=== PATIENT | female | born 1960 | race Caucasian/White ===

== ENCOUNTER 2018-07-01 06:58 | Emergency (ER) | payer MEDICARE, BC ==
[2018-07-01] MEDS ORDERED: DIPH/PERTUSS(ACELL)/TETANUS VAC/PF 0.5 ML SYR (>=10YO) IM ONE (08:24)
[2018-07-01] MEDS ORDERED: OXYCODONE-ACETAMINOPHEN 5-325 MG TABLET PO ONE (08:24)
--- NOTE | 2018-07-01 09:00 | RADIOLOGY REPORT (SQ) ---
EXAM DESCRIPTION: WRIST RIGHT 3 VIEWS COMPLETED DATE/TIME: 07/01/2018 8:52 am REASON FOR STUDY: fall COMPARISON: None. NUMBER OF VIEWS: Three views. TECHNIQUE: AP, lateral, and oblique radiographic images acquired of the right wrist. LIMITATIONS: None. FINDINGS: MINERALIZATION: Normal. BONES: There is an impaction type fracture of the distal radius and associated avulsion type fracture of the ulnar styloid process. SOFT TISSUES: There is associated soft tissue swelling. OTHER: No other significant finding. IMPRESSION: Fracture of the distal ulna and radius as noted above. TECHNICAL DOCUMENTATION: JOB ID: [id number] [employer]- All Rights Reserved Reading location - IP/workstation name: [email or web address]
--- NOTE | 2018-07-01 09:05 | RADIOLOGY REPORT (SQ) ---
EXAM DESCRIPTION: KNEE LEFT 4 VIEW COMPLETED DATE/TIME: 07/01/2018 8:51 am REASON FOR STUDY: fall COMPARISON: None. NUMBER OF VIEWS: Four views. TECHNIQUE: AP, lateral, and both oblique radiographic images acquired of the left knee. LIMITATIONS: None. FINDINGS: MINERALIZATION: Normal. BONES: No acute fracture or dislocation. No worrisome bone lesions. JOINT: No effusion. SOFT TISSUES: No soft tissue swelling. No radio-opaque foreign body. OTHER: No other significant finding. IMPRESSION: 1. NEGATIVE STUDY OF THE LEFT KNEE. 2. If symptoms persist, follow-up examination is suggested for re-evaluation. TECHNICAL DOCUMENTATION: JOB ID: [id number] [employer]- All Rights Reserved Reading location - IP/workstation name: [email or web address]
--- NOTE | 2018-07-01 09:05 | RADIOLOGY REPORT (SQ) ---
EXAM DESCRIPTION: ANKLE BILATERAL 3 VIEWS MIN COMPLETED DATE/TIME: 07/01/2018 8:51 am REASON FOR STUDY: fall COMPARISON: None. NUMBER OF VIEWS: Three views. TECHNIQUE: AP, lateral, and oblique without weight bearing radiographic images acquired of the right and left ankle. LIMITATIONS: None. FINDINGS: MINERALIZATION: Normal. BONES: In the oblique projection there is some cortical irregularity involving the distal end of the fibula which I cannot exclude as a fracture. No other evidence for fracture on the right is seen. No evidence for fracture dislocation on the left is seen. JOINTS: No effusions. SOFT TISSUES: There is soft tissue swelling on the right OTHER: No other significant finding. IMPRESSION: Cortical irregularity at the level of the distal end of the right fibula which I cannot exclude as a fracture. No other evidence for fracture is seen. Clinical correlation is recommended. Other findings as noted above TECHNICAL DOCUMENTATION: JOB ID: [id number] [employer]- All Rights Reserved Reading location - IP/workstation name: [email or web address]
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
[2018-07-01 09:59] VITALS: BP 118/68
== END 2018-07-01 09:55 | disposition home or self-care (01) ==
LOC: ER 06:58
PROC: 2W3CX1Z Immobilization of Right Lower Arm using Splint (ICD-10-PCS; principal; 2018-07-01)
DX: S52.501A Unspecified fracture of the lower end of right radius, initial encounter for closed fracture (principal); S82.831A Other fracture of upper and lower end of right fibula, initial encounter for closed fracture; S93.402A Sprain of unspecified ligament of left ankle, initial encounter; S83.92XA Sprain of unspecified site of left knee, initial encounter; W10.9XXA Fall (on) (from) unspecified stairs and steps, initial encounter
CPT/HCPCS: 99283; 90471; 73564; 73110; 73610; 90715; 29125; L1902; A9270

== ENCOUNTER 2018-07-02 09:41 | Day surgery (SDC) | payer MEDICARE, BC ==
[~2018-07-02 09:41] MED LIST: CEFAZOLIN 2 GM/D5W RTU 2 GM/50 ML RTUPB IV ONE; CEFAZOLIN 2 GM/D5W RTU 2 GM/50 ML RTUPB IV PRN; DEXAMETHASONE SOD PHOSPHATE INJ 4 MG/1 ML VIAL ONE; KETOROLAC TROMETHAMINE 60 MG/2 ML SDV ONE; METOCLOPRAMIDE HCL INJ/PF 10 MG/2 ML SDV ONE; ONDANSETRON HCL INJ/PF 4 MG/2 ML SDV ONE; SUCCINYLCHOLINE CHLORIDE INJ 200 MG/10 ML VIAL ONE
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
[2018-07-02 10:37] LABS: HEMOGLOBIN 16.2 g/dL (12.0-15.5); MEAN CORPUSCULAR HEMOGLOBIN 31.1 pg (27.0-33.4); MEAN CORPUSCULAR HGB CONC 34.5 g/dL (32.0-36.0); MEAN CORPUSCULAR VOLUME 90 fl (80-97); PLATELET COUNT 195 10^3/uL (150-450); RED BLOOD COUNT 5.22 10^6/uL (3.72-5.28); WHITE BLOOD COUNT 6.3 10^3/uL (4.0-10.5)
[2018-07-02] MEDS ORDERED: ALBUTEROL SULFATE 0.083% NEB 2.5 MG/3 ML AMPUL NEB ONE (11:00)
[2018-07-02 11:04] LABS: ANION GAP 7 (5-19); BLOOD UREA NITROGEN 19 mg/dL (7-20); CALCIUM 9.4 mg/dL (8.4-10.2); CARBON DIOXIDE 28 mmol/L (22-30); CHLORIDE 103 mmol/L (98-107); GLUCOSE 94 mg/dL (75-110); POTASSIUM 3.3 mmol/L (3.6-5.0); SODIUM 137.8 mmol/L (137-145)
[2018-07-02] MEDS ORDERED: LIDOCAINE 2% INJ-PF (20 MG/ML) 10 ML AMPUL ONE (13:15)
[2018-07-02] MEDS ORDERED: HYDROMORPHONE HCL INJ/PF 2 MG/ML AMPULE ONE (13:15)
[2018-07-02] MEDS ORDERED: MIDAZOLAM 2 MG/2 ML INJ ONE (13:16)
[2018-07-02] MEDS ORDERED: PROPOFOL INJ 200 MG/20 ML VIAL IV ONE (13:16)
[2018-07-02] MEDS ORDERED: FENTANYL CITRATE INJ/PF 100 MCG/2 ML AMPUL ONE (13:16)
--- NOTE | 2018-07-02 13:48 | EKG REPORT ---
SEVERITY:- BORDERLINE ECG - SINUS RHYTHM PROBABLE LEFT ATRIAL ABNORMALITY : Confirmed by: Monique Levi MD 02-Jul-2018 13:46:29
[2018-07-02] MEDS ORDERED: PROMETHAZINE HCL INJ 25 MG/1 ML VIAL IV PRN ×2 (14:25)
[2018-07-02] MEDS ORDERED: DIPHENHYDRAMINE HCL 50 MG/ML VIAL IV PRN (14:25)
[2018-07-02] MEDS ORDERED: OXYCODONE-ACETAMINOPHEN 5-325 MG TABLET PO PRN ×4 (14:25→15:56)
[2018-07-02] MEDS ORDERED: FENTANYL CITRATE INJ/PF 100 MCG/2 ML AMPUL IV PRN ×3 (14:25)
[2018-07-02] MEDS ORDERED: MEPERIDINE HCL/PF INJ 25 MG/1 ML DISP.SYRIN IV PRN (14:25)
[2018-07-02] MEDS ORDERED: ONDANSETRON HCL INJ/PF 4 MG/2 ML SDV IV PRN (14:25)
[2018-07-02] MEDS ORDERED: BUPIVACAINE HCL 0.5 % INJ/PF 30 ML SDV ONE (14:46)
[2018-07-02] MEDS ORDERED: ACETAMINOPHEN 1,000 MG/100 ML RTUPB IV ONE (15:31)
--- NOTE | 2018-07-02 15:35 | Operative Report ---
Operative Report DATE OF SURGERY: 07/02/18 PREOPERATIVE DIAGNOSIS: Right intra-articular distal radius fracture with ulnar styloid fracture POSTOPERATIVE DIAGNOSIS: Same OPERATION: ORIF of right distal radius fracture SURGEON: RONAK PEREZ ANESTHESIA: GA TISSUE REMOVED OR ALTERED: None COMPLICATIONS: None ESTIMATED BLOOD LOSS: Less than 20 mL INTRAOPERATIVE FINDINGS: As above PROCEDURE: Procedure In Detail: Patient was seen and evaluated in the preoperative holding area. The right right upper extremity was initialized and marked. Patient received 2g of Ancef IV for bacterial prophylaxis. Patient was taken back to the operative room where transferred to the operative table and placed under general anesthesia. Once they were adequately anesthetized and a nonsterile tourniquet was placed on his upper extremity. A surgical team debriefing was performed ensuring all instrumentation was available, the surgical procedure was discussed with possible concerns reviewed. The upper extremity was prepped with chlorhexidine and alcohol and draped in a sterile fashion. A timeout was done identifying correct patient, procedure and right upper extremity everyone in attendance agree with this and verbalized no concerns.The extremity was exsanguinated the tourniquet was inflated to 250 mmHg. A longitudinal skin incision was made via a volar approach of Terence along the FCR tendon sheath. The FCR tendon sheath was opened and the FCR retracted ulnarly, the palmar cutaneous patient median nerve was identified and protected throughout the entirety of the case. The radial artery was identified and retracted radially. Dissection was done down to the FPL which was carefully sweeped ulnarly. This brought me to the pronator quadratus which was elevated off of the distal radius via sharp dissection with a 15 blade to allow later repair. The fracture was then identified and a gentle reduction was performed. A near anatomic reduction was then obtained and a Acumed 3 hole volar distal radius plate was then placed into position and fixated with a K wire proximally x2. AP and lateral radiographs were then obtained demonstrating appropriate placement of the plate and near anatomic reduction of the fracture. I then used a large reduction tenaculum bringing the plate down to bone distally. I drilled the near cortex and placed a cortical screw bringing the plate further down to bone, avoiding any liftoff of the plate from the volar cortex that could cause flexor tendon irritation post-operativley. I then drilled the near cortex and to but not thru the far cortex and measured the appropriate size screw, locking screws were then placed in the remaining holes. The previous cortex screw was removed and replaced with a locking screw. I then drilled 2 additional screws were placed into the styloid giving further stability to the radial styloid piece. AP and lateral radius were then done confirming appropriate placement of plate with no evidence of penetration intra-articular or within the DRUJ. I then turned my attention to the proximal screws. I drilled bicortically bringing the plate down to bone with a cortex screw. The remaining 2 holes proximally were drilled bicortically placing the appropriate size cortex and the proximal most hole and a locking screw in the distal shaft hole. AP and lateral radiographs were done confirming appropriate placement of the plate and reduction of the fracture there was scientology of radial height, radial inclination and volar tilt. No evidence of dorsal screw prominence or intra-articular penetration of the DRUJ or radiocarpal joint. I then copious irrigated the wound with normal saline. There was no evidence of DRUJ instability on examination, Negative Dutton's test, No crepitus with range of motion at the radiocarpal joint or DRUJ. I then closed the pronator quadratus with 0 Vicryl. Subcutaneous tissues were closed with 2-0 Vicryl and 3 -0 nylon for skin. I used horizontal mattress suture for the skin. 20 mL of 0.5% Marcaine were injected for postoperative pain control. The tourniquet was then deflated exactly at 70 minutes. Was dressed with sterile 4 x 4's and patient was placed in a well-padded volar splint with bias wrap. Sponge counts, instrument counts and needle counts were correct. There was no intraoperative complications patient tolerated procedure well stable to PACU. Postoperative plan: Patient will be switched to a removal brace at her first postoperative followup visit and begin range of motion.
--- NOTE | 2018-07-02 15:42 | RADIOLOGY REPORT (SQ) ---
EXAM DESCRIPTION: WRIST RIGHT 3 VIEWS; NO CHG FLUORO COMPLETED DATE/TIME: 07/02/2018 3:28 pm REASON FOR STUDY: ORIF RT WRIST ASST WITH FLUORO IN OR Z79.899 OTHER [facility] (CURRENT) DRUG THERA PY COMPARISON: 07/01/2018 FLUOROSCOPY TIME: 0.9 minutes Spot images saved to PACS. TECHNIQUE: Intra-operative images acquired during surgical procedure to evaluate progress. NUMBER OF IMAGES: 3 LIMITATIONS: None. FINDINGS: Fluoroscopy was provided for intraoperative procedure. Please refer to the operative repo rt for further discussion. IMPRESSION: IMAGE(S) OBTAINED DURING PROCEDURE. COMMENT: Quality ID [id number]: Final reports for procedures using fluoroscopy that document radiation exp osure indices, or exposure time and number of fluorographic images (if radiation exposure indices are not available) Please consult full operative report of the attending physician for description of the procedure. TECHNICAL DOCUMENTATION: JOB ID: [id number] [employer]- All Rights Reserved Reading location - IP/workstation name: [email or web address]
--- NOTE | 2018-07-02 15:42 | RADIOLOGY REPORT (SQ) ---
EXAM DESCRIPTION: WRIST RIGHT 3 VIEWS; NO CHG FLUORO COMPLETED DATE/TIME: 07/02/2018 3:28 pm REASON FOR STUDY: ORIF RT WRIST ASST WITH FLUORO IN OR Z79.899 OTHER CUSTODIAL (CURRENT) DRUG THERA PY COMPARISON: 07/01/2018 FLUOROSCOPY TIME: 0.9 minutes Spot images saved to PACS. TECHNIQUE: Intra-operative images acquired during surgical procedure to evaluate progress. NUMBER OF IMAGES: 3 LIMITATIONS: None. FINDINGS: Fluoroscopy was provided for intraoperative procedure. Please refer to the operative repo rt for further discussion. IMPRESSION: IMAGE(S) OBTAINED DURING PROCEDURE. COMMENT: Quality ID [id number]: Final reports for procedures using fluoroscopy that document radiation exp osure indices, or exposure time and number of fluorographic images (if radiation exposure indices are not available) Please consult full operative report of the attending physician for description of the procedure. TECHNICAL DOCUMENTATION: JOB ID: [id number] [employer]- All Rights Reserved Reading location - IP/workstation name: [email or web address]
--- NOTE | 2018-07-02 15:52 | Discharge Summary ---
Discharge Summary (SDC) - Discharge Final Diagnosis: ORIF of right distal radius fracture Date of Surgery: 07/02/18 Discharge Date: 07/02/18 Condition: Good Treatment or Instructions: Keep the splint and dressing dry clean and intact. Structured ice and elevate and to be nonweightbearing of the right upper extremity. Okay to use a sling for comfort. Follow-up in 10-14 days Prescriptions: Oxycodone HCl/Acetaminophen [Percocet 5-325 mg Tablet] 1 - 2 tab PO ASDIR PRN # 40 tablet PRN Reason: Referrals: RUPA JETER MD [Primary Care Provider] - Discharge Diet: As Tolerated Respiratory Treatments at Home: Deep Breathing/Coughing Discharge Activity: No Driving, No Lifting/Push/Pulling, Slowly Increase Activity, Walk Frequently Report the Following to Your Physician Immediately: Shortness of Breath, Vomiting, Increase in Pain, Fever over 101 Degrees, Unusual Bleeding, Redness, Swelling, Warmth, Increased Soreness, Drainage-Yellow, Drainage-Recio, Drainage- Green, Drainage-Foul Smelling
[2018-07-02 17:22] VITALS: BP 141/87
== END 2018-07-02 17:02 | disposition home or self-care (01) ==
LOC: OROUT 09:41
PROVIDERS: ATTEND Orthopaedic Surgery
DX: S52.571A Other intraarticular fracture of lower end of right radius, initial encounter for closed fracture (principal); S52.611A Displaced fracture of right ulna styloid process, initial encounter for closed fracture; S82.64XA Nondisplaced fracture of lateral malleolus of right fibula, initial encounter for closed fracture; W10.8XXA Fall (on) (from) other stairs and steps, initial encounter; G40.909 Epilepsy, unspecified, not intractable, without status epilepticus; J45.909 Unspecified asthma, uncomplicated; I10 Essential (primary) hypertension; K21.9 Gastro-esophageal reflux disease without esophagitis; F17.210 Nicotine dependence, cigarettes, uncomplicated; Z88.6 Allergy status to analgesic agent; Z88.5 Allergy status to narcotic agent; Z91.040 Latex allergy status; Z79.1 Long term (current) use of non-steroidal anti-inflammatories (NSAID)
CPT/HCPCS: 36415; 85027; 80048; 71045; 73110; 93005; 93010; 25609; C1713 ×6; J2250; J3490 ×2; J1100; J1885; J3010; J2765; J1170; J0330; J2405; J2704; A9270; J0690; J0131; 01830